=== PATIENT | female | born 1985 | race Caucasian/White ===

== ENCOUNTER 2017-11-27 12:18 | Emergency (ER) | payer SELFPAY ==
[2017-11-27 13:04] VITALS: BP 117/54
--- NOTE | 2017-11-27 13:42 | UC ---
Skin Complaint HPI - HPI Summary HPI Summary: lesion on buttock that has grown over the last 3 days, very painful. - History of Current Complaint Chief Complaint: UCSkin Time Seen by Provider: 11/27/17 13:41 Stated Complaint: SKIN COMPLAINT Hx Obtained From: Patient Hx Last Menstrual Period: 2 days ago ?: No Onset/Duration: Sudden Onset, Lasting Days Skin Exposure Onset/Duration: Days Ago Timing: Constant Onset Severity: Worse Since: - 3 days Pain Intensity: 6 Character: Pain, Redness, Raised, Painful - Allergy/Home Medications Allergies/Adverse Reactions: Allergies Allergy/AdvReac Type Severity Reaction Status Date / Time No Known Allergies Allergy Verified 11/27/17 12:55 Home Medications: Home Medications NK [No Home Medications Reported] 11/27/17 [History Confirmed 11/27/17] Review of Systems Constitutional: Negative Skin: Other - red lump Eyes: Negative ENT: Negative Respiratory: Negative Cardiovascular: Negative Gastrointestinal: Negative Genitourinary: Negative Motor: Negative Neurovascular: Negative Musculoskeletal: Negative Neurological: Negative Psychological: Negative Is Patient Immunocompromised?: No All Other Systems Reviewed And Are Negative: Yes PMH/Surg Hx/FS Hx/Imm Hx Previously Healthy: Yes - Surgical History Surgical History: None - Family History Known Family History: Negative: Cardiac Disease, Hypertension - Social History Alcohol Use: Weekly Alcohol Amount: 2 Substance Use Type: Marijuana Substance Use Comment - Amount & Last Used: yesterday Smoking Status (MU): Light Every Day Tobacco Smoker Physical Exam Vital Signs: Initial Vital Signs Temp 99.3 F 11/27/17 12:58 Pulse 81 11/27/17 12:58 Resp 18 11/27/17 12:58 BP 117/54 11/27/17 12:58 Pulse Ox 100 11/27/17 12:58 Course/Dx - Course Course Of Treatment: hx obtained, exam performed ,meds reviewed, Discharge - Discharge Plan Referrals: No Primary Care Phys,NOPCP [Primary Care Provider] -
[2017-11-27] MEDS ORDERED: Lidocaine 1% MPF* 2 ML VIAL INJ ONE (13:48)
--- NOTE | 2017-11-27 13:55 | UC ---
Skin Complaint HPI - HPI Summary HPI Summary: pt is c/o painful bump to her R buttock. she has been txing with drawing cream, soaking and squeezed site with some drainage. no fever or chills. denies hx MRSA. - History of Current Complaint Chief Complaint: UCSkin Time Seen by Provider: 11/27/17 13:41 Stated Complaint: SKIN COMPLAINT Hx Obtained From: Patient Hx Last Menstrual Period: 2 days ago Onset/Duration: Gradual Onset Timing: Constant Pain Intensity: 6 Aggravating Factor(s): Nothing Associated Signs & Symptoms: Negative: Nausea, Shivering, Fever, Chills, Abdominal Pain - Allergy/Home Medications Allergies/Adverse Reactions: Allergies Allergy/AdvReac Type Severity Reaction Status Date / Time No Known Allergies Allergy Verified 11/27/17 12:55 Review of Systems Constitutional: Negative Skin: Other - infection R buttock Eyes: Negative ENT: Negative Respiratory: Negative Cardiovascular: Negative Gastrointestinal: Negative Genitourinary: Negative Motor: Negative Neurovascular: Negative Musculoskeletal: Negative Neurological: Negative Psychological: Negative Is Patient Immunocompromised?: No All Other Systems Reviewed And Are Negative: Yes PMH/Surg Hx/FS Hx/Imm Hx Previously Healthy: Yes - Surgical History Surgical History: None - Social History Lives: With Family Alcohol Use: Weekly Alcohol Amount: 2 Substance Use Type: Marijuana Substance Use Comment - Amount & Last Used: yesterday Smoking Status (MU): Light Every Day Tobacco Smoker - Immunization History Vaccination Up to Date: Yes Physical Exam Triage Information Reviewed: Yes Appearance: Well-Appearing Vital Signs: Initial Vital Signs Temp 99.3 F 11/27/17 12:58 Pulse 81 11/27/17 12:58 Resp 18 11/27/17 12:58 BP 117/54 11/27/17 12:58 Pulse Ox 100 11/27/17 12:58 Vital Signs Reviewed: Yes Eye Exam: Normal ENT: Positive: Normal ENT inspection Neck: Positive: Supple Respiratory: Positive: Lungs clear, Normal breath sounds Cardiovascular: Positive: RRR, No Murmur Abdomen Description: Positive: Nontender, No Organomegaly, Soft, Other: - no inguinal adenopathy. Negative: Distended, Guarding Bowel Sounds: Positive: Present Musculoskeletal: Positive: ROM Intact Neurological: Positive: Alert Psychological: Positive: Age Appropriate Behavior Skin Exam: Normal Skin: Positive: Other - 3cm area of induration, erythema and tenderness R buttock. Puss drained from center with pressure. Course/Dx - Course Course Of Treatment: PROCEDURE: TIME OUT DONE. AREA PREP BETADINE. LOCAL WITH 1ML OF 1% LIDOCAINE. SUPERFICIAL STAB WITH TIP #11 BLADE-SCANT PUSS DRAINED. BLUNT DISSECTION WITH FORCEP(DEPTH 1CM). IRRIGATED WITH STERILE WATER. SMALL PACK(1/4" IODOFORM GAUZE) PLACED FOLLOWED BY BACITRACIN, GAUZE AND HELD WITH PAPER TAPE. STERILE TECHNIQUE FOR PROCEDURE. PT TOLERATED WELL AND NOTES LESS PAIN POST I&D. - Diagnoses Provider Diagnoses: I&d ABSCESS R BUTTOCK Discharge - Discharge Plan Condition: Stable Disposition: HOME Prescriptions: Cephalexin CAP* [Keflex CAP*] 500 mg PO TID #21 cap Patient Education Materials: Abscess Incision and Drainage (DC) Referrals: El Milligan MD [Medical Doctor] - 2 Days Additional Instructions: CALL THIS CONTACT NUMBER TOMORROW AND MAKE AN APPOINTMENT TO BE SEEN BY DR MILLIGAN OR DR CASTRO ON FOLLOW UP. IF NOT ABLE TO BE SEEN THERE, YOU MAY RETURN HERE FOR THE RECHECK.
== END 2017-11-27 14:41 | disposition home or self-care (01) ==
LOC: UCCORT 12:18
DX: L02.31 Cutaneous abscess of buttock (principal); F17.210 Nicotine dependence, cigarettes, uncomplicated
CPT/HCPCS: 10060; 99202; G0463